=== PATIENT | female | born 1965 | race Caucasian/White ===

== ENCOUNTER → 2022-05-29 | Outpatient (CLI) | payer BC ==
[2022-05-29 12:39] LABS: ALBUMIN 3.7 g/dL (3.5-5.0); POTASSIUM 3.9 mmol/L (3.5-5.1); TOTAL PROTEIN, SERUM 7.4 g/dL (6.0-8.3)
[2022-05-29 13:05] LABS: CREATININE 0.9 mg/dL (0.5-1.5)
== END | disposition home or self-care (01) ==
LOC: LAB 10:16
PROVIDERS: ATTEND Internal Medicine Cardiovascular Disease
DX: R07.9 Chest pain, unspecified (principal)
CPT/HCPCS: 36415; 80053

== ENCOUNTER → 2022-06-12 | Outpatient (CLI) | payer BC | END | disposition home or self-care (01) | LOC: RAH 10:05 → EDUNIT# 10:30 | PROVIDERS: ATTEND Internal Medicine Cardiovascular Disease | DX: R07.9 Chest pain, unspecified (principal); R53.83 Other fatigue | CPT/HCPCS: 75574 ==